=== PATIENT | male | born 1965 | race Caucasian/White ===

== ENCOUNTER → 2016-03-12 | Outpatient (CLI) | payer OTHER ==
[~2016-03-12] MED LIST: ASPI325T PO; ASPI81TA PO; COUM1TAB17 PO; LOVE0.8I SC; ROSU10TA PO
[2016-03-12 13:36] LABS: INR 1.76
== END | disposition home or self-care (01) ==
LOC: M LAB 13:12
PROVIDERS: ATTEND Physician Assistant Medical
DX: I63.239 Cerebral infarction due to unspecified occlusion or stenosis of unspecified carotid artery (principal); Z79.01 Long term (current) use of anticoagulants

== ENCOUNTER → 2016-03-30 | Outpatient (CLI) | payer OTHER ==
[2016-03-30 07:50] LABS: INR 2.06
== END | disposition home or self-care (01) ==
LOC: M LAB 07:23
PROVIDERS: ATTEND Physician Assistant Medical
DX: I63.239 Cerebral infarction due to unspecified occlusion or stenosis of unspecified carotid artery (principal); Z79.01 Long term (current) use of anticoagulants

== ENCOUNTER → 2016-04-13 | Outpatient (CLI) | payer OTHER ==
[2016-04-13 13:14] LABS: INR 2.75
== END | disposition home or self-care (01) ==
LOC: M LAB 12:37
PROVIDERS: ATTEND Physician Assistant Medical
DX: I63.239 Cerebral infarction due to unspecified occlusion or stenosis of unspecified carotid artery (principal)

== ENCOUNTER → 2016-04-28 | Outpatient (CLI) | payer OTHER ==
[2016-04-28 08:43] LABS: INR 2.95
== END ==
LOC: M LAB 08:09
PROVIDERS: ATTEND Physician Assistant Medical
DX: I63.239 Cerebral infarction due to unspecified occlusion or stenosis of unspecified carotid artery (principal)

== ENCOUNTER → 2016-06-15 | Outpatient (CLI) | payer OTHER ==
[~2016-06-15] MED LIST changes: +CRES10TA32 PO; -ROSU10TA PO
[2016-06-15 12:05] LABS: INR 2.6
== END ==
LOC: M LAB 11:00
PROVIDERS: ATTEND Physician Assistant Medical
DX: I63.239 Cerebral infarction due to unspecified occlusion or stenosis of unspecified carotid artery (principal)

== ENCOUNTER → 2016-07-17 | Outpatient (CLI) | payer OTHER ==
[2016-07-17 11:03] LABS: INR 2.53
== END ==
LOC: M LAB 10:32
PROVIDERS: ATTEND Physician Assistant Medical
DX: I63.239 Cerebral infarction due to unspecified occlusion or stenosis of unspecified carotid artery (principal)

== ENCOUNTER → 2016-08-27 | Outpatient (CLI) | payer OTHER ==
[2016-08-27 12:25] LABS: INR 2.42
== END ==
LOC: M LAB 11:23
PROVIDERS: ATTEND Physician Assistant Medical
DX: I63.239 Cerebral infarction due to unspecified occlusion or stenosis of unspecified carotid artery (principal)

== ENCOUNTER → 2016-09-21 | Outpatient (CLI) | payer OTHER ==
[~2016-09-21] MED LIST changes: +CLON1TAB PO; +FLUO20CA19; +HYDR-3716 PO
[2016-09-21 10:50] LABS: BASO % 0.5 % (0.0-1.0); EOS # 0.2 K/mm3 (0.0-0.50); EOS % 2.1 % (0.0-3.0); LARGE UNSTAINED CELL # 0.2 K/mm3 (0.0-0.4); LYMPH # 2.1 K/mm3 (1.5-4.5); LYMPH % 26.8 % (24.0-44.0); MEAN CORPUSCULAR HEMOGLOBIN 33.2 pg (27.0-33.0); MEAN CORPUSCULAR HGB CONC 33.1 g/dl (32.0-36.5); MEAN CORPUSCULAR VOLUME 100.3 fl (80.0-96.0); MONO # 0.5 K/mm3 (0.0-0.8); MONO % 6.1 % (0.0-5.0); NEUTROPHILS % 62.6 % (36.0-66.0); PLATELET COUNT, AUTOMATED 284 k/mm3 (150-450); RED CELL DISTRIBUTION WIDTH 12.5 % (11.5-14.5)
[2016-09-21 11:05] LABS: INR 2.87
[2016-09-21 11:16] LABS: ANION GAP 4 MEQ/L (8-16); BLOOD UREA NITROGEN 12 MG/DL (7-18); CARBON DIOXIDE LEVEL 31 MEQ/L (21-32); CHLORIDE LEVEL 107 MEQ/L (98-107); CHOLESTEROL LEVEL 125 MG/DL (<200); CREATININE FOR GFR 1.02 MG/DL (0.70-1.30); GLOMERULAR FILTRATION RATE > 60.0 (>56); GLUCOSE, FASTING 105 MG/DL (70-105); POTASSIUM SERUM 4.5 MEQ/L (3.5-5.1); SODIUM LEVEL 142 MEQ/L (136-145); TRIGLYCERIDES LEVEL 75 MG/DL (<150)
[2016-09-21 11:17] LABS: PERCENT SATURATION 17.2 % (19.7-37.4); TOTAL IRON BINDING CAPACITY 366 UG/DL (250-450)
== END ==
LOC: M LAB 10:18
PROVIDERS: ATTEND Physician Assistant Medical
DX: R42 Dizziness and giddiness (principal); E78.5 Hyperlipidemia, unspecified; I63.239 Cerebral infarction due to unspecified occlusion or stenosis of unspecified carotid artery

== ENCOUNTER → 2016-10-19 | Outpatient (CLI) | payer OTHER ==
[2016-10-19 13:07] LABS: INR 2.52
== END ==
LOC: M LAB 12:32
PROVIDERS: ATTEND Physician Assistant Medical
DX: I63.239 Cerebral infarction due to unspecified occlusion or stenosis of unspecified carotid artery (principal)

== ENCOUNTER 2016-11-14 21:05 | Emergency (ER) | payer OTHER ==
[~2016-11-14] VITALS: Ht 172.7 cm; Wt 60.0 kg
[2016-11-14 21:05] VITALS: BP 148/92
[~2016-11-14 21:05] MED LIST changes: -CLON1TAB PO; -FLUO20CA19; -HYDR-3716 PO
[2016-11-14] MEDS ORDERED: CLON1TAB PO (21:24)
[2016-11-14] MEDS ORDERED: FLUO20CA19 (21:24)
[2016-11-14] MEDS ORDERED: HYDR-3716 PO (21:24)
[2016-11-14] MEDS ORDERED: FLUORESCEIN OPHTH 1 MG STRIP OS ONE (22:15)
[2016-11-14] MEDS ORDERED: TETRACAINE 0.5% OPHTH SOLN 4ML OS ONE (22:15)
[2016-11-14] MEDS ORDERED: CIPROFLOXACIN 0.3% OPHTH SOLN 2.5ML OS ONE (22:30)
== END 2016-11-14 22:45 | disposition home or self-care (01) ==
LOC: M ED 21:05
DX: H10.9 Unspecified conjunctivitis (principal); E78.00 Pure hypercholesterolemia, unspecified; F33.9 Major depressive disorder, recurrent, unspecified; F41.9 Anxiety disorder, unspecified; Z87.891 Personal history of nicotine dependence; Z79.82 Long term (current) use of aspirin; Z79.01 Long term (current) use of anticoagulants

== ENCOUNTER → 2016-11-24 | Outpatient (CLI) | payer OTHER ==
[~2016-11-24] MED LIST changes: +CLON1TAB PO; +COUM1TAB14 PO; +COUM1TAB19 PO; +FLUO20CA19; +HYDR-3716 PO; +IRON18TA2 PO
[2016-11-24 09:44] LABS: INR 2.37
== END ==
LOC: M LAB 09:01
PROVIDERS: ATTEND Physician Assistant Medical
DX: I63.239 Cerebral infarction due to unspecified occlusion or stenosis of unspecified carotid artery (principal)

== ENCOUNTER → 2017-02-10 | Outpatient (CLI) | payer OTHER ==
[2017-02-10 10:45] LABS: INR 1.9
== END ==
LOC: M LAB 10:08
PROVIDERS: ATTEND Physician Assistant Medical
DX: I63.239 Cerebral infarction due to unspecified occlusion or stenosis of unspecified carotid artery (principal)

== ENCOUNTER → 2017-02-23 | Outpatient (CLI) | payer OTHER ==
[2017-02-23 12:11] LABS: INR 2.24
== END ==
LOC: M LAB 11:13
PROVIDERS: ATTEND Physician Assistant Medical
DX: Z51.81 Encounter for therapeutic drug level monitoring (principal); Z79.01 Long term (current) use of anticoagulants; I63.239 Cerebral infarction due to unspecified occlusion or stenosis of unspecified carotid artery

== ENCOUNTER → 2017-02-23 | Outpatient (REF) | payer OTHER ==
[2017-02-24 15:58] LABS: PERCENT SATURATION 13.3 % (19.7-50.0)
== END ==
LOC: M LAB REF 15:14
PROVIDERS: ATTEND Physician Assistant Medical
DX: E78.5 Hyperlipidemia, unspecified (principal); E61.1 Iron deficiency

== ENCOUNTER → 2017-03-23 | Outpatient (CLI) | payer OTHER ==
[2017-03-23 10:54] LABS: CHOLESTEROL LEVEL 136 MG/DL (<200); HDL CHOLESTEROL 34 MG/DL (>40); IRON (FE) 104 UG/DL (65-175); LDL CHOLESTEROL 84.2 MG/DL (<100); NON-HDL-C 102 MG/DL; PERCENT SATURATION 35.6 % (19.7-50.0); TOTAL IRON BINDING CAPACITY 292 UG/DL (250-450); TRIGLYCERIDES LEVEL 89 MG/DL (<150)
== END ==
LOC: M LAB 09:59
DX: E78.5 Hyperlipidemia, unspecified (principal); E61.1 Iron deficiency
CPT/HCPCS: 83550

== ENCOUNTER → 2017-04-19 | Outpatient (CLI) | payer OTHER ==
[2017-04-19 11:58] LABS: INR 1.78; PROTHROMBIN TIME 21.3 SECONDS (12.4-14.5)
== END ==
LOC: M LAB 10:51
DX: I63.239 Cerebral infarction due to unspecified occlusion or stenosis of unspecified carotid artery (principal); Z51.81 Encounter for therapeutic drug level monitoring; Z79.01 Long term (current) use of anticoagulants
CPT/HCPCS: 85610

== ENCOUNTER → 2017-05-03 | Outpatient (CLI) | payer OTHER ==
[2017-05-03 11:38] LABS: INR 2.96; PROTHROMBIN TIME 32.1 SECONDS (12.4-14.5)
== END ==
LOC: M LAB 10:44
DX: Z51.81 Encounter for therapeutic drug level monitoring (principal); I63.239 Cerebral infarction due to unspecified occlusion or stenosis of unspecified carotid artery; Z79.01 Long term (current) use of anticoagulants
CPT/HCPCS: 85610

== ENCOUNTER → 2017-05-19 | Outpatient (CLI) | payer OTHER ==
[2017-05-19 11:22] LABS: INR 2.99; PROTHROMBIN TIME 32.4 SECONDS (12.4-14.5)
== END ==
LOC: M LAB 10:38
DX: I63.239 Cerebral infarction due to unspecified occlusion or stenosis of unspecified carotid artery (principal)
CPT/HCPCS: 85610

== ENCOUNTER → 2017-06-21 | Outpatient (CLI) | payer OTHER ==
[2017-06-21 11:26] LABS: INR 3.13; PROTHROMBIN TIME 33.6 SECONDS (12.4-14.5)
== END ==
LOC: M LAB 10:57
DX: I63.239 Cerebral infarction due to unspecified occlusion or stenosis of unspecified carotid artery (principal)
CPT/HCPCS: 85610

== ENCOUNTER → 2017-07-27 | Outpatient (REF) | LOC: M SMT 13:29 | DX: M54.5 Low back pain (principal) ==

== ENCOUNTER → 2017-10-06 | Outpatient (CLI) | payer OTHER ==
[2017-10-06 11:22] LABS: INR 2.58; PROTHROMBIN TIME 28.2 SECONDS (12.1-14.4)
== END ==
LOC: M LAB 10:40
DX: Z51.81 Encounter for therapeutic drug level monitoring (principal); Z79.01 Long term (current) use of anticoagulants
CPT/HCPCS: 85610

== ENCOUNTER → 2018-02-10 | Outpatient (CLI) | payer OTHER ==
[2018-02-10 11:02] LABS: BASO % 0.3 % (0.0-1.0); EOS # 0.2 10^3/uL (0.0-0.50); EOS % 1.4 % (0.0-3.0); HEMATOCRIT 44.6 % (42.0-52.0); HEMOGLOBIN 15.1 g/dl (13.5-17.5); IMMATURE GRANULOCYTE % 0.5 % (0-3.0); LYMPH # 2.5 10^3/uL (1.5-4.5); LYMPH % 19.1 % (24.0-44.0); MEAN CORPUSCULAR HEMOGLOBIN 32.8 pg (27.0-33.0); MEAN CORPUSCULAR HGB CONC 33.9 g/dl (32.0-36.5); MEAN CORPUSCULAR VOLUME 96.7 fl (80.0-96.0); MONO # 1.4 10^3/uL (0.0-0.8); MONO % 10.3 % (0.0-5.0); NEUTROPHILS % 68.4 % (36.0-66.0); PLATELET COUNT, AUTOMATED 276 10^3/uL (150-450); RED BLOOD COUNT 4.61 10^6/uL (4.30-6.10); RED CELL DISTRIBUTION WIDTH 12.5 % (11.5-14.5); WHITE BLOOD COUNT 13.2 10^3/uL (4.0-10.0)
[2018-02-10 11:26] LABS: CHOLESTEROL LEVEL 125 MG/DL (<200); CHOLESTEROL RISK RATIO 2.906 (<5); HDL CHOLESTEROL 43 MG/DL (>40); LDL CHOLESTEROL 70 MG/DL (<100); NON-HDL-C 82 MG/DL; TRIGLYCERIDES LEVEL 61 MG/DL (<150)
== END ==
LOC: M LAB 10:07
DX: Z51.81 Encounter for therapeutic drug level monitoring (principal); Z79.01 Long term (current) use of anticoagulants; E78.5 Hyperlipidemia, unspecified
CPT/HCPCS: 80061

== ENCOUNTER → 2019-02-14 | Outpatient (CLI) | payer OTHER ==
[~2019-02-14] MED LIST changes: +ASPI-1 PO; -ASPI325T PO; +ASPI81CH36 PO; -ASPI81TA PO; -CLON1TAB PO; +CLON1TAB8 PO; +CRES10TA PO; -CRES10TA32 PO
[2019-02-14 13:50] LABS: ALT/SGPT 27 U/L (12-78); BILIRUBIN,TOTAL 0.7 MG/DL (0.2-1.0); BLOOD UREA NITROGEN 11 MG/DL (7-18); CALCIUM LEVEL 9.1 MG/DL (8.5-10.1); CARBON DIOXIDE LEVEL 31 MEQ/L (21-32); CHLORIDE LEVEL 104 MEQ/L (98-107); CHOLESTEROL LEVEL 149 MG/DL (<200); CREATININE FOR GFR 1.06 MG/DL (0.70-1.30); GLOMERULAR FILTRATION RATE > 60.0 (>56); GLUCOSE, FASTING 139 MG/DL (70-100); HDL CHOLESTEROL 56 MG/DL (>40); LDL CHOLESTEROL 79 MG/DL (<100); NON-HDL-C 93 MG/DL; POTASSIUM SERUM 4.2 MEQ/L (3.5-5.1); SODIUM LEVEL 138 MEQ/L (136-145); TRIGLYCERIDES LEVEL 68 MG/DL (<150)
== END ==
LOC: M LAB 12:32
PROVIDERS: ATTEND Physician Assistant Medical
DX: E78.2 Mixed hyperlipidemia (principal)

== ENCOUNTER → 2019-04-24 | Outpatient (CLI) | payer OTHER ==
[~2019-04-24] MED LIST changes: +ASPI81CH32 PO; -ASPI81CH36 PO; -FLUO20CA19; +FLUO20CA22
[2019-04-24 11:19] LABS: HEMOGLOBIN A1c 5.8 %
== END ==
LOC: M LAB 10:08
PROVIDERS: ATTEND Physician Assistant Medical
DX: R73.9 Hyperglycemia, unspecified (principal)

== ENCOUNTER → 2021-01-24 | Outpatient (CLI) | payer OTHER ==
[~2021-01-24] MED LIST changes: -COUM1TAB14 PO; +COUM4TAB8 PO
[2021-01-24 16:35] LABS: ALT/SGPT 31 U/L (12-78); BILIRUBIN,TOTAL 0.4 MG/DL (0.2-1.0); BLOOD UREA NITROGEN 12 MG/DL (7-18); CALCIUM LEVEL 9.3 MG/DL (8.5-10.1); CARBON DIOXIDE LEVEL 32 MEQ/L (21-32); CHLORIDE LEVEL 106 MEQ/L (98-107); CHOLESTEROL LEVEL 138 MG/DL (<200); CHOLESTEROL RISK RATIO 2.705 (<5); CREATININE FOR GFR 1.04 MG/DL (0.70-1.30); GLOMERULAR FILTRATION RATE > 60.0 (>56); GLUCOSE, FASTING 107 MG/DL (70-100); HDL CHOLESTEROL 51 MG/DL (>40); LDL CHOLESTEROL 73 MG/DL (<100); NON-HDL-C 87 MG/DL; POTASSIUM SERUM 4.6 MEQ/L (3.5-5.1); SODIUM LEVEL 142 MEQ/L (136-145); TOTAL PROTEIN 6.8 GM/DL (6.4-8.2); TRIGLYCERIDES LEVEL 72 MG/DL (<150)
== END ==
LOC: M WUC 11:23
PROVIDERS: ATTEND Nurse Practitioner Family
DX: Z00.00 Encounter for general adult medical examination without abnormal findings (principal)

== ENCOUNTER → 2023-03-24 | Outpatient (REF) | payer OTHER ==
[2023-03-24 13:38] LABS: BASO % 0.5 % (0.0-1.0); EOS # 0.2 10^3/uL (0.0-0.5); EOS % 2.4 % (0.0-3.0); HEMATOCRIT 45.1 % (42.0-52.0); LYMPH % 37.4 % (24.0-44.0); MEAN CORPUSCULAR HEMOGLOBIN 32.5 pg (27.0-33.0); MEAN CORPUSCULAR HGB CONC 33.3 g/dl (32.0-36.5); MEAN CORPUSCULAR VOLUME 97.6 fl (80.0-96.0); MONO # 0.8 10^3/uL (0.0-0.8); MONO % 9.6 % (2.0-8.0); PLATELET COUNT, AUTOMATED 297 10^3/uL (150-450); RED BLOOD COUNT 4.62 10^6/uL (4.30-6.10)
[2023-03-24 14:07] LABS: ALBUMIN 3.7 G/DL (3.2-5.2); ALKALINE PHOSPHATASE 61 U/L (46-116); ALT/SGPT 16 U/L (7.0-40); AST/SGOT 13 U/L (<34); BILIRUBIN,TOTAL 0.3 MG/DL (0.3-1.2); BLOOD UREA NITROGEN 9 MG/DL (9-23); CALCIUM LEVEL 8.8 MG/DL (8.5-10.1); CARBON DIOXIDE LEVEL 30 MMOL/L (20-31); CHLORIDE LEVEL 107 MMOL/L (98-107); CHOLESTEROL LEVEL 149 MG/DL (<200); CREATININE FOR GFR 0.93 MG/DL (0.70-1.30); GLOMERULAR FILTRATION RATE > 60.0 (>56); GLUCOSE, FASTING 105 MG/DL (60-100); HDL CHOLESTEROL 51.3 MG/DL (>40); LDL CHOLESTEROL 83.5 MG/DL (<100); NON-HDL-C 97.7 MG/DL; POTASSIUM SERUM 4.4 MMOL/L (3.5-5.1); SODIUM LEVEL 141 MMOL/L (136-145); TOTAL PROTEIN 6.4 G/DL (5.7-8.2); TRIGLYCERIDES LEVEL 71 MG/DL (<150)
== END ==
LOC: M LABWUC 12:24 → M LAB REF 12:24
PROVIDERS: ATTEND Nurse Practitioner Family
DX: E78.5 Hyperlipidemia, unspecified (principal); Z86.73 Personal history of transient ischemic attack (TIA), and cerebral infarction without residual deficits